=== PATIENT | male | born 1960 | race Caucasian/White ===

== ENCOUNTER → 2021-07-06 | Outpatient (REF) | LOC: LAB 08:39 | DX: Z12.5 Encounter for screening for malignant neoplasm of prostate (principal); E78.1 Pure hyperglyceridemia; I10 Essential (primary) hypertension; E11.9 Type 2 diabetes mellitus without complications ==

== ENCOUNTER → 2021-07-09 | Outpatient (CLI) | payer BC ==
[2021-07-09 12:21] LABS: POTASSIUM 4.9 mmol/L (3.5-5.1)
[2021-07-09 12:22] LABS: CALCIUM 9.7 mg/dL (8.3-10.5)
== END ==
LOC: LAB 11:56 → EDSTATUS 11:59
PROVIDERS: Family Medicine
DX: I10 Essential (primary) hypertension (principal); E87.5 Hyperkalemia

== ENCOUNTER → 2021-07-13 | Outpatient (CLI) | payer BC | LOC: AMSURD 10:37 | DX: R00.8 Other abnormalities of heart beat (principal) ==

== ENCOUNTER → 2022-04-26 | Outpatient (REF) | LOC: LAB 10:36 | DX: E78.1 Pure hyperglyceridemia (principal); E11.9 Type 2 diabetes mellitus without complications ==

== ENCOUNTER → 2022-07-11 | Outpatient (CLI) | payer BC | LOC: AMSURD 07:39 | DX: I48.91 Unspecified atrial fibrillation (principal); I10 Essential (primary) hypertension ==

== ENCOUNTER → 2024-01-09 | Outpatient (CLI) | payer BC ==
[2024-01-09 08:56] LABS: CALCIUM 10.4 mg/dL (8.3-10.5)
== END ==
LOC: LAB 08:37
PROVIDERS: Family Medicine
DX: I10 Essential (primary) hypertension (principal); E78.2 Mixed hyperlipidemia; E11.9 Type 2 diabetes mellitus without complications

== ENCOUNTER → 2025-01-15 | Outpatient (REF) | payer BC | LOC: LAB 08:56 → EDSTATUS 14:38 | DX: I10 Essential (primary) hypertension (principal); E11.9 Type 2 diabetes mellitus without complications; E78.2 Mixed hyperlipidemia ==